=== PATIENT | male | born 1975 | race Caucasian/White ===

== ENCOUNTER 2022-01-14 09:34 | Emergency (ER) | payer BC ==
[2022-01-14] MEDS ORDERED: Lidocaine 1% 10 ML MDV INJECT ONE (09:36)
[2022-01-14] MEDS ORDERED: Lidocaine 1% 30 ML SDV ONE (09:37)
[2022-01-14] MEDS ORDERED: Amoxicillin/Clavulanate K 875-125 MG Tab PO ONE (10:57)
== END 2022-01-14 11:15 | disposition home or self-care (01) ==
LOC: JD.ED 09:34
DX: S62.142B Displaced fracture of body of hamate [unciform] bone, left wrist, initial encounter for open fracture (principal); W26.8XXA Contact with other sharp object(s), not elsewhere classified, initial encounter; Y92.009 Unspecified place in unspecified non-institutional (private) residence as the place of occurrence of the external cause
CPT/HCPCS: 12002; 73100; 99283; A9270

== ENCOUNTER 2024-02-14 12:32 | Emergency (ER) | payer BC ==
[2024-02-14 13:29] LABS: BASOPHILS PERCENT AUTO 0.3 % (0.0-1.0); EOSINOPHILS PERCENT AUTO 0.1 % (0.0-6.0); HEMATOCRIT 46.6 % (42.0-52.0); HEMOGLOBIN 16.6 gm/dl (14.0-18.0); IMMATURE GRAN ABSOLUTE AUTO 0.03 K/mm3 (0.00-0.05); IMMATURE GRAN PERCENT AUTO 0.3 % (0.0-0.4); LYMPHOCYTES ABSOLUTE AUTO 1.5 K/mm3 (1.0-4.8); LYMPHOCYTES PERCENT AUTO 12.4 % (24.0-44.0); MEAN CORPUSCULAR HEMOGLOBIN 32.8 pg (28.0-32.0); MEAN CORPUSCULAR HGB CONC 35.6 g/dl (32.0-36.0); MEAN CORPUSCULAR VOLUME 92.1 fl (83.0-99.0); MEAN PLATELET VOLUME 8.7 fl (9.4-12.4); MONOCYTES ABSOLUTE AUTO 1.1 K/mm3 (0.0-0.8); MONOCYTES PERCENT AUTO 9.5 % (0.0-8.0); NEUTROPHILS ABSOLUTE AUTO 9.2 K/mm3 (1.8-7.7); NEUTROPHILS PERCENT AUTO 77.4 % (41.0-71.0); PLATELET COUNT,PLT 274 K/mm3 (150-400); RED BLOOD CELL COUNT 5.06 M/mm3 (4.52-5.90); WHITE BLOOD CELL COUNT,WBC 11.81 K/mm3 (3.9-11.3)
[2024-02-14] MEDS ORDERED: Sodium Chloride 0.9% 1,000 ML IV SCH (13:45)
[2024-02-14 13:55] LABS: LACTIC ACID 1.2 mmol/L (0.4-2.0)
[2024-02-14 14:02] LABS: A/G RATIO 1.1 (1-2); ANION GAP 18.4 (5-15); BUN/CREATININE RATIO 17.8 (14-18); C-REACTIVE PROTEIN 0.21 mg/dL (<0.30); CALCIUM 9.5 mg/dL (8.5-10.1); CREATININE 0.9 mg/dL (0.7-1.3); EST CRCL DRUG DOSING (CG) 94.72 mL/min; POTASSIUM,K 4.4 mEq/L (3.5-5.1); PROTEIN TOTAL,TP 7.6 g/dl (6.4-8.2)
[2024-02-14 14:36] LABS: CORONAVIRUS COVID-19 NAA NEGATIVE (NEGATIVE); INFLUENZA A NAA NEGATIVE (NEGATIVE); RESPIRATORY SYNCYTIAL VIR NAA NEGATIVE (NEGATIVE)
[2024-02-14] MEDS ORDERED: hydrOXYzine HCl 25 MG Tab PO ONE (14:55)
[2024-02-14] MEDS: hydrOXYzine HCl 50 MG Tab PO ONE (15:17)
== END 2024-02-14 16:08 | disposition home or self-care (01) ==
LOC: JD.ED 12:32
DX: S13.9XXA Sprain of joints and ligaments of unspecified parts of neck, initial encounter (principal); Z79.899 Other long term (current) drug therapy; X58.XXXA Exposure to other specified factors, initial encounter
CPT/HCPCS: 0241U; 36415; 80053; 83605; 84443; 85025; 86140; 93005; 99283; A9270; 93010